=== PATIENT | female | born 1985 ===

== ENCOUNTER 2022-04-14 22:22 | Emergency (ER) | payer SELFPAY ==
[2022-04-14 22:43] VITALS: BP 135/92
[2022-04-14 23:15] LABS: Bilirubin,Urine NEG (Negative); Blood,Urine NEG (Negative); Color,Urine Colorless (Yellow); Protein,Urine <15 mg/dL mg/dL (Negative); Urobilinogen,Urine < 2.0 mg/dL (<2.0)
[2022-04-14 23:20] LABS: Bacteria,Urine 1+ /HPF (Negative); Mucus,Urine FEW /HPF
[2022-04-14 23:21] LABS: WBC,Urine < 1.0 /HPF (0.0-6.0)
[2022-04-15 01:32] LABS: Basophils % (Auto) 0.5 % (0.0-1.8); Eosinophils % (Auto) 0.6 % (0.0-4.3); Hematocrit 47.7 % (30.3-42.9); Lymphocytes # (Auto) 2.1 K/mm3 (1.2-5.4); Lymphocytes % (Auto) 36.4 % (13.4-35.0); Mean Corpuscular HGB Conc 34 % (30-34); Mean Corpuscular Volume 87 fl (79-97); Monocytes # (Auto) 0.9 K/mm3 (0.0-0.8); Monocytes % (Auto) 15.5 % (0.0-7.3); Platelet Count 209 K/mm3 (140-440); Red Blood Count 5.51 M/mm3 (3.65-5.03); Red Cell Distribution Width 14.6 % (13.2-15.2)
[2022-04-15 01:35] LABS: Alanine Aminotransferase 362 units/L (7-56); Albumin 3.9 g/dL (3.9-5); BUN/Creatinine Ratio 5; Blood Urea Nitrogen 4 mg/dL (7-17); Calcium 8.2 mg/dL (8.4-10.2); Hemolysis Index 131
== END 2022-04-15 06:07 | disposition left against medical advice (07) ==
LOC: ED 22:22
DX: R10.9 Unspecified abdominal pain (principal); R11.10 Vomiting, unspecified; Z53.21 Procedure and treatment not carried out due to patient leaving prior to being seen by health care provider
CPT/HCPCS: 36415; 80053; 80320; 81001; 85025; G0480